=== PATIENT | female | born 1975 | race American Indian/Alaskan Native ===

== ENCOUNTER 2019-03-07 08:26 | Outpatient (CLI) | payer SELFPAY ==
--- NOTE | 2019-03-07 11:32 | Ultrasound Report ---
ULTRASOUND ABDOMEN, COMPLETE INDICATION: Acute abdominal pain. COMPARISON: No relevant prior imaging study available. FINDINGS: Pancreas: No significant abnormality. Abdominal Aorta: No significant abnormality. IVC: No significant abnormality. Liver: The liver measures 14 cm in length. No significant abnormality. Normal hepatopedal blood flow in the main portal vein. Gallbladder: No significant abnormality. Bile ducts: No significant abnormality. Common bile duct measures 2 mm. Kidneys: Right: 11.8 cm in length. No significant abnormality. Left: 1.9 cm in length. No signifi cant abnormality. Spleen: No significant abnormality. Free fluid: None. Additional Findings: None. IMPRESSION: 1. No sonographic abnormality of the abdomen. Signer Name: Zohaib Kebede Jr, MD Signed: 03/07/2019 11:27 AM Workstation Name: [id number]
== END 2019-03-07 08:27 | disposition home or self-care (01) ==
LOC: US 08:26
DX: R10.0 Acute abdomen (principal)
CPT/HCPCS: 76700